=== PATIENT | female | born 1940 | race Two or more races ===

== ENCOUNTER 2016-10-29 14:24 | Outpatient (CLI) | payer MEDICARE, MEDICAID | END 2016-10-29 23:59 | disposition home or self-care (01) | LOC: RAD 14:24 | PROVIDERS: ATTEND Family Medicine | DX: I70.0 Atherosclerosis of aorta (principal) | CPT/HCPCS: 71020-TC ==

== ENCOUNTER 2022-10-22 23:04 | Emergency (ER) | payer MEDICARE, OTHER ==
[~2022-10-22] VITALS: Ht 157.5 cm; Wt 56.7 kg
--- NOTE | 2022-10-23 | NUR ---
BIBDAUGHTER FROM HOME FOR RIGHT LEG SWELLING. SENT BY VASCULAR SURGEON TOLERATING R/A WELL WITH NO RESP DISTRESS. SAFETY MEASURES IN PLACE.
--- NOTE | 2022-10-23 02:03 | NUR ---
Patient discharged to home in stable condition. Written and verbal after care instructions given. Patient verbalizes understanding of instruction.
[2022-10-23 02:04] VITALS: BP 154/80
== END 2022-10-23 02:04 | disposition home or self-care (01) ==
LOC: ER 23:10
DX: M79.662 Pain in left lower leg (principal); M79.661 Pain in right lower leg; M79.89 Other specified soft tissue disorders
CPT/HCPCS: 93970-TC

== ENCOUNTER 2022-11-13 09:08 | Outpatient (CLI) | payer MEDICARE, OTHER | END 2022-11-13 23:59 | disposition home or self-care (01) | LOC: WOU 09:08 | PROVIDERS: ATTEND Podiatrist Foot & Ankle Surgery | DX: E11.42 Type 2 diabetes mellitus with diabetic polyneuropathy (principal); M20.42 Other hammer toe(s) (acquired), left foot; M20.41 Other hammer toe(s) (acquired), right foot; D21.22 Benign neoplasm of connective and other soft tissue of left lower limb, including hip; B35.1 Tinea unguium; L60.2 Onychogryphosis; L84 Corns and callosities; B35.3 Tinea pedis; Z79.84 Long term (current) use of oral hypoglycemic drugs; Z79.82 Long term (current) use of aspirin | CPT/HCPCS: 73630-TC; 88304-TC; 88311-TC; 88312-TC ==

== ENCOUNTER 2022-11-20 09:13 | Outpatient (CLI) | payer MEDICARE, OTHER | END 2022-11-20 23:59 | disposition home or self-care (01) | LOC: WOU 09:13 | PROVIDERS: ATTEND Podiatrist Foot & Ankle Surgery | DX: B35.1 Tinea unguium (principal); E11.9 Type 2 diabetes mellitus without complications; Z79.84 Long term (current) use of oral hypoglycemic drugs; R22.42 Localized swelling, mass and lump, left lower limb; M20.40 Other hammer toe(s) (acquired), unspecified foot; I10 Essential (primary) hypertension; Z79.82 Long term (current) use of aspirin; Z79.02 Long term (current) use of antithrombotics/antiplatelets | CPT/HCPCS: G0463 ==